=== PATIENT | female | born 1960 | race Caucasian/White ===

== ENCOUNTER → 2024-12-20 09:00 | Outpatient (CLI) | payer OTHER, SELFPAY ==
[2024-12-20 09:37] LABS: Add Manual Diff / Slide Review NO; Basophils Absolute Auto 100 /uL (0-100); Basophils Percent Auto 1.2 % (0-2); Eosinophils Absolute Auto 100 /uL (0-450); Eosinophils Percent Auto 1.8 % (2-4); Hematocrit 42.8 % (36-46); Hemoglobin 14.6 g/dL (12.0-16.0); Lymphocytes Absolute Auto 2800 /uL (1100-4500); Lymphocytes Percent Auto 35.4 % (25-40); Mean Corpuscular HGB Conc 34.2 % (30-36); Mean Corpuscular Hemoglobin 29.8 PG (26-34); Monocytes Absolute Auto 400 /uL (0-900); Neutrophils Absolute Auto 4500 /uL (1500-7000); Neutrophils Percent Auto 56.6 % (50-75); Platelet Count 288 X10^3/uL (150-400); Red Blood Cell Count 4.92 X10^6/uL (4.0-5.2); Red Cell Distribution Width 13.3 % (11.6-14.8)
[2024-12-20 09:46] LABS: Hemoglobin A1C% w Est Avg Glu 6.8 % (4.0-6.0)
[2024-12-20 10:10] LABS: Alanine Aminotransferase 48 IU/L (<35); Albumin 4.6 g/dL (3.5-5.0); Albumin Globulin Ratio 1.9 (1.0-2.8); Alkaline Phosphatase 148 U/L (38-126); Aspartate Aminotransferase 36 IU/L (14-36); BUN Creatinine Ratio 16.4 (6-22); Bilirubin Total 0.7 mg/dL (0.2-1.3); Blood Urea Nitrogen 12 mg/dL (7-17); Calcium 9.2 mg/dL (8.4-10.2); Carbon Dioxide 23 mmol/L (22-32); Chloride 100 mmol/L (98-107); Cholesterol 223 mg/dL (140-199); Estimated Glomerular Filt Rate > 60 mL/min (>60); Globulin 2.4 g/dL (1.7-4.1); Glucose 218 mg/dL (80-110); HDL Cholesterol 52 mg/dL (40-60); HEMOLYSIS < 15 (0-50); LDL Cholesterol Calculated 128 mg/dL (<100); Sodium 136 mmol/L (137-145); Triglycerides 213 mg/dL (35-150)
[2024-12-20 10:32] LABS: Creatinine Urine Random 119.71 mg/dL
[2024-12-20 10:36] LABS: TSH w/ Reflex to FT4 1.54 uIU/mL (0.47-4.68)
[2024-12-20 10:37] LABS: Microalbumin Urine Random 3.5 mg/dL (0-1.6)
== END ==
PROVIDERS: PCP Family Medicine; Referring Provider Family Medicine; Visit Provider Family Medicine
DX: F32.A Depression, unspecified (principal); I10 Essential (primary) hypertension; E11.9 Type 2 diabetes mellitus without complications
CPT/HCPCS: 36415; 80053; 80061; 82043; 82570; 83036; 84443; 85025

== ENCOUNTER → 2025-03-07 14:46 | Outpatient (CLI) | payer OTHER, SELFPAY ==
--- NOTE | 2025-03-07 15:05 | DIAB.MNT ---
Initial Diabetes Medical Nutrition Therapy Assessment Name: Erica Hayward (Ciarra) Date: 03/07/25 Time: 3-410p Dx: Type II Diabetes Provider: Adry Lafleur presents for initial Dm visit. Reports initial dx [id number]. FH of DM with mother in her 70s after severe flu (mother had h/o orals and insulin, but then managed with increased exercise). Tried Metformin, had diarrhea and hair loss Tried Rybelsus, which was expensive and had sharp pains in arms then d/c'd. Jardiance for 6 months and then hair loss Wants to manage with lifestyle. Wants to lose wt. At diagnosis, cut out candy and many simple carbs per report. Questions about cavanaugh intake. Enjoys butter and cavanaugh. Reports elevated liver enzymes and cholesterol, evidenced by recent labs. Reports tried statin but had LE pain. Works in [employer] from home for an [employer]. Lives in [place]. Diet recall: 7a: eggs and toast +/- veggies OR coffee with milk and cookie 1130-12: can of beans with dressing OR half tuna [facility] on ww 530-6p: fish or pork chops with veggies +/- CHO (peas/corn/ 1c rice/ 1/2-1c rice) 8p: 1/2-3/4c ice cream water ETOH 2 per week Anthropometrics: Ht: 65 Wt: 184# 12/2024 Weight history: 185-190# most of adult life reported Physical Activity: yardwork 3-4 days per week, trying to walk but only q few weeks Self-Monitoring Blood Glucose: None. No supplies but interested. Diabetes Medications: None Pertinent Labs: HgA1c: 6.8% 11/2024 ALT: 48 H Chol: 223 H T H LDL: 128 H HDL:52 Past Medical History: (Last Updated 12/27/24 @ 21:17 by Cristal Lentz) Abnormal Pap smear of cervix (~2022) Depression Disc herniation (~2015) HTN (hypertension) (~2009) Type 2 diabetes mellitus (~2017) Wears glasses Nutrition Rx: Carbohydrates: Meal: 30g CHO snack: 15-30g Nutrition Diagnosis: - Nutrition and food related knowledge deficit r/t needing more info on heart healthy fats and DM MNT aeb pt report - Self monitoring deficit r/t no suplies aeb pt report - Physical inactivity r/t limited consistent intentional exercise aeb pt report Intervention: This participant was very receptive. Provided appropriate educational handouts. Discussed the following topics: Completed intake assessment. Discussed barriers to care. Potential of self-monitoring, how often, and when to check. Suggested checking at different times to evaluate meals and BG goals Plate Method, impact of macronutrients on blood sugar, meal timing, carbohydrate counting, pairing macronutrients and spreading out carbohydrates for better blood glucose management Recommended servings for carbohydrates at meals and snacks Heart health nutrition Brainstormed appropriate meal plan based on food preferences Role of physical activity Weight management goals and strategies Created SMART goals for patient self-care and success. Goals: Aim for 30g CHO at meals Start walking Follow-up: FREDIS DIMAS follow-up in 2-3 weeks. PEDRO messaged PCP workgroup for SMBG supplies for pt. Violet Soler RDN, JUDIE Certified Diabetes Care and Trapeze Artist P: [phone] Thank you for this referral
== END ==
LOC: DIET 14:47
PROVIDERS: PCP Family Medicine
DX: E11.9 Type 2 diabetes mellitus without complications (principal); Z83.3 Family history of diabetes mellitus; Z71.3 Dietary counseling and surveillance
CPT/HCPCS: 97802

== ENCOUNTER → 2025-03-30 15:56 | Outpatient (CLI) | payer OTHER, SELFPAY ==
--- NOTE | 2025-03-30 16:03 | DIAB.MNTFU ---
Follow-up Diabetes Medical Nutrition Therapy Assessment Name: Erica Hayward (Erica) Date: 03/30/25 Time: 4-445p Dx: Type II Diabetes Provider: Adry Lafleur presents for Dm visit. Reports initial dx [id number]. FH of DM with mother in her 70s after severe flu (mother had h/o orals and insulin, but then managed with increased exercise). Tried Metformin, had diarrhea and hair loss. Tried Rybelsus, which was expensive and had sharp pains in arms then d/c'd. Only x 3 days. Jardiance for 6 months and then hair loss. Wants to manage with lifestyle. Wants to lose wt. 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 Lives in [place]. No changes to wt since last visit. has been traveling last couple weeks. Has not yet implemented exercise discussed last visit. Moved to 2% Kinyarwanda yogurt, down from 5%. Has questions regarding gallbladder impact on nutrition and digestion. Reports difficulty digesting processed black beans, ie fat content in process? or fiber content? Takes Mg to help with BM, otherwise has propensity for constipation. States overall, portions are going well. Considering food journalling. Has questions about meal timing and intermittent fasting. Today she is questioning if her past with hair loss was really r/t Dm meds or not. Has had loss without meds. Diet recall: 7a: eggs OR smoothie with friend on trip OR 1/2c yogurt with granola and seeds 1130-12: can of beans with dressing OR half tuna [facility] on ww sn:cookie 530-6p: fish with veggies +/- CHO (peas/corn/ 1c rice/ 1/2-1c rice) sn? water ETOH 2 per week Anthropometrics: Ht: 65 Wt: 184# 12/2024 Weight history: 185-190# most of adult life reported Physical Activity: More steps recently with trip but no intentional exercise. Self-Monitoring Blood Glucose: None. No supplies but interested. has rx but has not picked up and pharmacy needs to refill again. Diabetes Medications: None Pertinent Labs: HgA1c: 6.8% 11/2024 ALT: 48 H Chol: 223 H T H LDL: 128 H HDL:52 Past Medical History: (Last Updated 12/27/24 @ 21:17 by Cristal Lentz) Abnormal Pap smear of cervix (~2022) Depression Disc herniation (~2015) HTN (hypertension) (~2009) Type 2 diabetes mellitus (~2017) Wears glasses Nutrition Rx: Carbohydrates: Meal: 30g CHO snack: 15-30g Nutrition Diagnosis: - Nutrition and food related knowledge deficit r/t needing more info on heart healthy fats and DM MNT aeb pt report- improved - Self monitoring deficit r/t no suplies aeb pt report- in progress - Physical inactivity r/t limited consistent intentional exercise aeb pt report- in progress Intervention: This participant was very receptive. Provided appropriate educational handouts. Discussed the following topics: Physical activity meal timing and BG management MNT for limited ability to process fats or post gallbladder removal Digestion of processed beans vs not processed Protein snacks When to check BG Potential benefits for food journal if wanting to try Constipation MNT Created SMART goals for patient self-care and success. Goals: Aim for 30g CHO at meals - improved Start walking - in progress Try black beans at home rinsed- new Boil eggs for snack- new Refill SMBG supplies- new Start daily walks- new Consider food jouranl- new Follow-up: FREDIS DIMAS follow-up in 4-6 weeks Violet Soler RDN, KAPILES Certified Diabetes Care and Liver Trimmer P: [phone] Thank you for this referral
== END ==
LOC: DIET 15:59
PROVIDERS: PCP Family Medicine; Referring Provider Family Medicine
DX: E11.9 Type 2 diabetes mellitus without complications (principal); Z71.3 Dietary counseling and surveillance; Z83.3 Family history of diabetes mellitus
CPT/HCPCS: 97803

== ENCOUNTER → 2025-06-22 15:23 | Outpatient (CLI) | payer OTHER, SELFPAY ==
--- NOTE | 2025-07-04 09:30 | DIAB.MNTFU ---
Follow-up Diabetes Medical Nutrition Therapy Assessment Name: Erica Hayward (Erica) Date: 06/22/25 Time: 340-430p Dx: Type II Diabetes Ciarra presents for Dm visit. Reports initial dx [id number]. Tried Metformin, had diarrhea and hair loss. Tried Rybelsus, which was expensive and had sharp pains in arms then d/c'd. Only x 3 days. Jardiance for 6 months and then hair loss. Wants to manage with lifestyle. Wants to lose wt. Has been doing more creative outlets with groups, which helps with her social health per report. States her brother is on a health kick and she has tried a few of his recipes, ie fried egg in pesto with avocado and toast. States he has unfollowed food blogs on social media because she found herself being obsessive. States overall she feels her diet is going well without blogs. Diet recall; 10a: egg, toast and half avocado OR yogurt, nuts, talisha and 1/3c granola 3p: half avocado 530-6p: pizza OR pork chop with broccoli +/- 1c rice OR protein with broccoi and +/- corn 7p: ice cream x 1c 3-5x per week water Likes whole grains. Less potatoes lately. Has questions about dates nutrition as a replacement for sweets. Anthropometrics: Ht: 65 Wt: 184# 12/2024 Weight history: 185-190# most of adult life reported Physical Activity: Watch was left in office in [place]. Has been doing a few walks lately. Parking farther away. Put her shoes in the car. Ordered trampoline. Self-Monitoring Blood Glucose: None. No supplies but interested. Diabetes Medications: None Pertinent Labs: HgA1c: 6.8% 11/2024 ALT: 48 H Chol: 223 H T H LDL: 128 H HDL:52 Past Medical History: (Last Updated 12/27/24 @ 21:17 by Cristal Lentz) Abnormal Pap smear of cervix (~2022) Depression Disc herniation (~2015) HTN (hypertension) (~2009) Type 2 diabetes mellitus (~2017) Wears glasses Nutrition Rx: Carbohydrates: Meal: 30g CHO snack: 15-30g Nutrition Diagnosis: - Nutrition and food related knowledge deficit r/t needing more info on CHO in certain foods aeb pt report- new - Self monitoring deficit r/t no suplies aeb pt report- in progress - Physical inactivity r/t limited consistent intentional exercise aeb pt report- in progress/improved Intervention: This participant was very receptive. Provided appropriate educational handouts. Discussed the following topics: Physical activity Nutrition recs Date nutritoin Night time eating Strategies for limiting sweets SMBG Created SMART goals for patient self-care and success. Goals: Put shoes in car to increase walking- met Contact intermediary company about SMBG supplies- in progress Consider home equipment that you would use- met Wear smart watch for tracking steps- in progress Continue physical activity - new Limit ice cream 0-3x per week- new Limit to 1-2 dates as a snack - new Follow-up: FREDIS DIMAS follow-up in 3-4 weeks Violet Soler RDN, JUDIE Certified Diabetes Care and Auto Glass Worker P: [phone] Thank you for this referral
== END ==
PROVIDERS: PCP Family Medicine; Referring Provider Family Medicine
DX: E11.9 Type 2 diabetes mellitus without complications (principal); Z71.3 Dietary counseling and surveillance
CPT/HCPCS: 97803